=== PATIENT | female | born 1945 | race Caucasian/White ===

== ENCOUNTER 2017-02-03 07:26 | Day surgery (SDC) ==
[2017-02-03] MEDS ORDERED: VERSED ONE (09:14)
[2017-02-03] MEDS ORDERED: DIPRIVAN 20 ML VIAL IVP ONE (09:14)
[2017-02-03 10:31] VITALS: BP 126/60; TEMP 97.6
--- NOTE | 2017-02-04 09:28 | OP ---
PROCEDURE: COLONOSCOPY TO THE CECUM WITH SNARE POLYPECTOMY. ENDOSCOPIST: Berny ALEGRIA M.D. INDICATION: HISTORY OF ADENOMATOUS POLYPS, LAST EXAM FIVE YEARS PRIOR TO THIS DATE INSTRUMENT: [employer]-190. MEDICATION: PER ANESTHESIA. PROCEDURE: The patient was positioned for colonoscopy. The digital rectal exam was negative. The colonoscope was inserted through the anus and advanced to the cecum. The cecum was identified using the ileocecal valve and the appendiceal orifice as landmarks. The scope was slowly withdrawn through an adequately prepped colon. A small polyp at the hepatic flexure removed using cold snare polypectomy. Diverticuli noted in the left colon. Retroflex exam otherwise normal. The patient tolerated the procedure without immediate complication. Withdrawal time 8 minutes and 48 seconds. PLAN: 1. Review pathology with anticipated repeat colonoscopy in five years. CC: DR. MINA BACA
== END 2017-02-03 10:44 | disposition home or self-care (01) ==
LOC: SURG 07:26
PROVIDERS: ATTEND Internal Medicine Gastroenterology
DX: Z09 Encounter for follow-up examination after completed treatment for conditions other than malignant neoplasm (principal); Z86.010 Personal history of colon polyps; D12.3 Benign neoplasm of transverse colon; K57.30 Diverticulosis of large intestine without perforation or abscess without bleeding